=== PATIENT | female | born 1985 | race Caucasian/White ===

== ENCOUNTER 2025-01-11 13:03 | Inpatient (IN) | payer OTHER ==
[2025-01-11 14:48] LABS: BASO % 0.1 % (0-2.0); EOS % 0.2 % (0-4.5); HEMATOCRIT 41.2 % (32.4-45.2); HEMOGLOBIN 13.4 GM/dL (10.7-15.3); MCHC 32.6 g/dl (32.0-36.0); MEAN PLT VOLUME 9.1 fl (7.5-11.1); MONO % 7.2 % (3.8-10.2); NEUT % 88.5 % (42.8-82.8); PLATELET COUNT 257 10^3/uL (134-434); RBC 4.33 M/mm3 (3.60-5.2); RDW 12.4 % (11.6-15.6); WHITE BLOOD COUNT 13.8 K/mm3 (4.0-10.0)
[2025-01-11] MEDS: LACTATED RINGERS SOLUTION 1000 ML INFUS.BAG IV ONE ×2 (14:51→19:52)
[2025-01-11] MEDS ORDERED: ONDANSETRON 4 MG/2 ML VIAL ONE (14:54)
[2025-01-11] MEDS ORDERED: morphine SULFATE 4 MG/ML VIAL ONE ×2 (14:54→19:08)
[2025-01-11] MEDS: ONDANSETRON 4 MG/2 ML VIAL IVPUSH ONE (14:57)
[2025-01-11 14:58] LABS: POTASSIUM 3.4 mmol/L (3.5-5.1)
[2025-01-11] MEDS: morphine CARPU-JECT 4 MG/1 ML DISP.SYRIN IVPUSH ONE ×2 (14:59→19:10)
[2025-01-11 15:00] LABS: CALCIUM 9.2 mg/dL (8.5-10.1)
[2025-01-11 15:01] LABS: BLOOD UREA NITROGEN 8.7 mg/dL (7-18)
[2025-01-11 15:04] LABS: CREATININE 0.6 mg/dL (0.55-1.3)
[2025-01-11 15:05] LABS: BILIRUBIN,TOTAL 0.8 mg/dL (0.2-1)
[2025-01-11 15:06] LABS: TOT PROT 7.4 g/dl (6.4-8.2)
[2025-01-11] MEDS: LACTATED RINGERS SOLUTION 1,000 ML/1,000 ML INFUS.BAG IV SCH (16:45)
[2025-01-11] MEDS ORDERED: MORPHINE SULFATE 2 MG/ML SYRINGE IVPUSH PRN (22:00)
[2025-01-12 00:28] VITALS: BMI 29.2
[2025-01-12] MEDS: SIMETHICONE 80 MG TAB.CHEW (FP) PO PRN (00:38)
[2025-01-12] MEDS: ACETAMINOPHEN 1000 MG/100 ML BAG IVPB PRN (06:56)
[2025-01-12] MEDS: ONDANSETRON 4 MG/2 ML VIAL IVPUSH PRN (08:44)
[2025-01-12] MEDS: KCL 10 MEQ IVPB 10 MEQ/100 ML INFUS.BAG IVPB SCH (09:10)
[2025-01-12 10:08] LABS: HEMATOCRIT 38.7 % (32.4-45.2); MCH 31.7 pg (25.7-33.7); MCHC 33.6 g/dl (32.0-36.0); MEAN CELL VOLUME 94.3 fl (80-96); MEAN PLT VOLUME 9.2 fl (7.5-11.1); PLATELET COUNT 273 10^3/uL (134-434); RBC 4.11 M/mm3 (3.60-5.2); RDW 12.4 % (11.6-15.6); WHITE BLOOD COUNT 10.2 K/mm3 (4.0-10.0)
[2025-01-12] MEDS: POLYETHYLENE GLYCOL (HEALTHYLAX) 3350 17 GM PACKET PO SCH (10:10)
[2025-01-12 12:11] LABS: POTASSIUM 3.6 mmol/L (3.5-5.1)
[2025-01-12 12:19] LABS: ALBUMIN 3.6 g/dl (3.4-5.0)
[2025-01-12 12:22] LABS: CREATININE 0.4 mg/dL (0.55-1.3)
[2025-01-12 12:23] LABS: BILIRUBIN,TOTAL 0.8 mg/dL (0.2-1); TOT PROT 6.6 g/dl (6.4-8.2)
[2025-01-12] MEDS: ACETAMINOPHEN 1000 MG/100 ML BAG IVPB SCH (12:51)
[2025-01-13] MEDS ORDERED: DEXTROSE 50%-WATER - 25 GM/50 ML VIAL IVPUSH PRN (08:44)
[2025-01-13] MEDS ORDERED: DEXTROSE 50%-WATER 25 GM/50 ML DISP.SYRIN IVPUSH PRN (08:46)
[2025-01-13 10:18] LABS: INR 1.1 (0.83-1.09); PROTHROMBIN TIME (PATIENT) 12.1 SEC (9.7-13.0)
[2025-01-13 10:30] LABS: BASO % 0.7 % (0-2.0); EOS % 3.2 % (0-4.5); HEMATOCRIT 35.8 % (32.4-45.2); LYMPH % 24.3 % (8-40); MCH 31.4 pg (25.7-33.7); MCHC 33.5 g/dl (32.0-36.0); MEAN CELL VOLUME 93.9 fl (80-96); MONO % 6.1 % (3.8-10.2); NEUT % 65.7 % (42.8-82.8); RBC 3.81 M/mm3 (3.60-5.2); RDW 12.3 % (11.6-15.6); WHITE BLOOD COUNT 6.7 K/mm3 (4.0-10.0)
[2025-01-13 10:39] LABS: POTASSIUM 3.2 mmol/L (3.5-5.1)
[2025-01-13 10:42] LABS: ALBUMIN 3.4 g/dl (3.4-5.0); BLOOD UREA NITROGEN 6.1 mg/dL (7-18)
[2025-01-13 10:45] LABS: CREATININE 0.5 mg/dL (0.55-1.3)
[2025-01-13 10:47] LABS: BILIRUBIN,TOTAL 0.4 mg/dL (0.2-1); TOT PROT 6.7 g/dl (6.4-8.2)
[2025-01-13 11:02] LABS: PLATELET ESTIMATE ADEQUATE
[2025-01-13 14:04] VITALS: BP 107/67; PULSE 95; RESP 19; TEMP 98.4
== END 2025-01-13 17:00 | disposition home or self-care (01) | DRG 252 ==
LOC: JER 13:03 → JERBED 19:24 → J6S 01-12 00:03
PROVIDERS: ADMIT Student in an Organized Health Care Education/Training Program; ATTEND Internal Medicine
DX: K91.89 Other postprocedural complications and disorders of digestive system (principal); K85.90 Acute pancreatitis without necrosis or infection, unspecified
CPT/HCPCS: 36415; 74177-TC; 74330-TC; 80053; 81025; 83690; 84478; 84703; 85025; 85027; 85610; 86140; 93005; 93010; 99285-25; J0131; Q9967